=== PATIENT | female | born 1985 | race American Indian/Alaskan Native ===

== ENCOUNTER 2018-07-12 10:19 | Outpatient (CLI) | payer OTHER | END 2018-07-12 11:21 | disposition home or self-care (01) | LOC: NST 10:19 | DX: Z34.83 Encounter for supervision of other normal pregnancy, third trimester (principal) ==

== ENCOUNTER 2018-08-02 09:54 | Outpatient (CLI) | payer OTHER | END 2018-08-02 11:47 | disposition home or self-care (01) | LOC: NST 09:54 | DX: Z34.83 Encounter for supervision of other normal pregnancy, third trimester (principal) ==

== ENCOUNTER 2018-08-09 10:09 | Outpatient (CLI) | payer OTHER | END 2018-08-09 11:56 | disposition home or self-care (01) | LOC: NST 10:09 | DX: Z34.83 Encounter for supervision of other normal pregnancy, third trimester (principal) ==

== ENCOUNTER 2018-08-10 09:35 | Outpatient (CLI) | payer OTHER | END 2018-08-10 10:45 | disposition home or self-care (01) | LOC: NST 09:35 | DX: Z34.83 Encounter for supervision of other normal pregnancy, third trimester (principal) ==

== ENCOUNTER 2018-08-17 08:56 | Outpatient (CLI) | payer OTHER | END 2018-08-17 10:08 | disposition home or self-care (01) | LOC: NST 08:56 | DX: Z34.83 Encounter for supervision of other normal pregnancy, third trimester (principal) ==

== ENCOUNTER 2018-08-17 12:30 | Inpatient (IN) | payer OTHER ==
[~2018-08-17] VITALS: Ht 180.3 cm; Wt 112.9 kg
[2018-08-24] MEDS ORDERED: LABETALOL HCL200 MG (14:35)
== END 2018-09-14 14:29 | disposition home or self-care (01) | DRG 807 ==
LOC: OB/GYN 08-24 13:45 → LDR 09-11 17:35 → SURG-SUITE 09-11 17:35 → LDR 09-11 18:45 → SURG-SUITE 09-12 13:46 → OB/GYN 09-19 13:45
PROVIDERS: ADMIT Obstetrics & Gynecology Maternal & Fetal Medicine
PROC: 4A1HXCZ Monitoring of Products of Conception, Cardiac Rate, External Approach (ICD-10-PCS; 2018-09-11)
PROC: 10E0XZZ Delivery of Products of Conception, External Approach (ICD-10-PCS; principal; 2018-09-12)
PROC: 0HQ9XZZ Repair Perineum Skin, External Approach (ICD-10-PCS; 2018-09-12)
PROC: 3E033VJ Introduction of Other Hormone into Peripheral Vein, Percutaneous Approach (ICD-10-PCS; 2018-09-12)
DX: O70.0 First degree perineal laceration during delivery (principal); Z37.0 Single live birth; Z3A.38 38 weeks gestation of pregnancy; Z22.330 Carrier of Group B streptococcus

== ENCOUNTER 2018-08-22 00:38 | Outpatient (CLI) | payer OTHER | END 2018-08-22 01:33 | disposition home or self-care (01) | LOC: NST 00:38 | DX: Z34.83 Encounter for supervision of other normal pregnancy, third trimester (principal) ==

== ENCOUNTER 2018-09-07 09:18 | Outpatient (CLI) | payer OTHER ==
[~2018-09-07 09:18] MED LIST: LABETALOL HCL200 MG
== END 2018-09-07 10:10 | disposition home or self-care (01) ==
LOC: NST 09:18
DX: Z34.83 Encounter for supervision of other normal pregnancy, third trimester (principal)

== ENCOUNTER 2022-04-22 09:08 | Outpatient (CLI) | payer OTHER | END 2022-04-22 10:13 | disposition home or self-care (01) | LOC: NST 09:08 | PROVIDERS: ATTEND Obstetrics & Gynecology Gynecology | DX: Z34.83 Encounter for supervision of other normal pregnancy, third trimester (principal) ==

== ENCOUNTER 2022-04-29 10:49 | Outpatient (CLI) | payer OTHER | END 2022-04-29 11:57 | disposition home or self-care (01) | LOC: NST 10:49 | PROVIDERS: ATTEND Obstetrics & Gynecology Maternal & Fetal Medicine | DX: Z34.83 Encounter for supervision of other normal pregnancy, third trimester (principal) ==

== ENCOUNTER 2022-05-10 08:52 | Outpatient (CLI) | payer OTHER | END 2022-05-10 10:34 | disposition home or self-care (01) | LOC: NST 08:52 | PROVIDERS: ATTEND Obstetrics & Gynecology Maternal & Fetal Medicine | DX: Z34.83 Encounter for supervision of other normal pregnancy, third trimester (principal) ==

== ENCOUNTER 2022-05-19 09:30 | Inpatient (IN) | payer OTHER ==
[~2022-05-19] VITALS: Ht 180.3 cm; Wt 111.6 kg
[2022-05-20] MEDS ORDERED: NIFEDIPINE20 MG PO (09:32)
[2022-05-20] MEDS ORDERED: INTEGRA F CAPS1 EAC1 (13:24)
[2022-05-20] MEDS ORDERED: NIFEDIPINE ER30 M1 (13:24)
== END 2022-05-22 14:39 | disposition home or self-care (01) | DRG 807 ==
LOC: LDR 05-20 06:42 → OB/GYN 05-20 18:22
PROVIDERS: ADMIT Obstetrics & Gynecology; ATTEND Obstetrics & Gynecology
PROC: 10E0XZZ Delivery of Products of Conception, External Approach (ICD-10-PCS; principal; 2022-05-20)
PROC: 4A1HXCZ Monitoring of Products of Conception, Cardiac Rate, External Approach (ICD-10-PCS; 2022-05-20)
DX: O80 Encounter for full-term uncomplicated delivery (principal); Z37.0 Single live birth; Z3A.38 38 weeks gestation of pregnancy; Z20.822 Contact with and (suspected) exposure to COVID-19